=== PATIENT | female | born 1970 | race Caucasian/White ===

== ENCOUNTER 2022-12-15 04:00 | Day surgery (SDC) | payer BC ==
[2022-12-11 15:56] VITALS: BMI 32.9
[~2022-12-15 04:00] MED LIST: BUPIVACAINE HCL/PF 2.5 MG/ML - 30 ML VIAL IJ ONE
[2022-12-15] MEDS ORDERED: BUPIVACAINE HCL/PF 0.25% (2.5MG/ML) 10 ML VIAL ONE (07:12)
[2022-12-15] MEDS ORDERED: SUCCINYLCHOLINE CHLORIDE 200 MG/10 ML SYRINGE ONE (07:30)
[2022-12-15] MEDS ORDERED: PROPOFOL 40 ML ONE (07:30)
[2022-12-15] MEDS ORDERED: MIDAZOLAM HCL 2 MG/2 ML SINGLE DOSE VIAL ONE (07:30)
[2022-12-15] MEDS ORDERED: ONDANSETRON 4 MG/2 ML VIAL IVPUSH PRN (09:24)
[2022-12-15] MEDS ORDERED: oxyCODONE HCL 5 MG TABLET PO PRN (09:24)
[2022-12-15] MEDS ORDERED: LACTATED RINGERS SOLUTION 1,000 ML IV SCH (09:30)
[2022-12-15] MEDS ORDERED: ONDANSETRON 4 MG/2 ML VIAL ONE (10:01)
[2022-12-15] MEDS ORDERED: oxyCODONE HCL 5 MG TABLET ONE (13:14)
[2022-12-15 13:30] VITALS: PULSE 68
[2022-12-15 13:51] VITALS: BP 148/90; RESP 18; TEMP 98
== END 2022-12-15 13:59 | disposition home or self-care (01) ==
LOC: JASU-SURG 04:00
PROVIDERS: ATTEND Surgery
PROC: 06BY4ZC Excision of Hemorrhoidal Plexus, Percutaneous Endoscopic Approach (ICD-10-PCS; principal; 2022-12-15 08:00)
DX: K64.3 Fourth degree hemorrhoids (principal)
CPT/HCPCS: 94760